=== PATIENT | male | born 1970 | race Hispanic/Latino ===

== ENCOUNTER → 2018-12-23 | Outpatient (CLI) | payer OTHER | END | disposition home or self-care (01) | LOC: RAH 10:53 | PROVIDERS: ATTEND Internal Medicine | DX: Z13.6 Encounter for screening for cardiovascular disorders (principal) | CPT/HCPCS: 75571 ==

== ENCOUNTER → 2023-09-17 | Outpatient (CLI) | payer OTHER | END | disposition home or self-care (01) | LOC: RAH 15:03 | PROVIDERS: ATTEND Internal Medicine | DX: Z13.6 Encounter for screening for cardiovascular disorders (principal) | CPT/HCPCS: 75571 ==